=== PATIENT | female | born 1985 | race African-American/Black ===

== ENCOUNTER 2021-07-10 06:21 | Emergency (ER) | payer SELFPAY ==
[2021-07-10] MEDS ORDERED: Dexamethasone 10 MG/ML VIAL ONE (07:29)
[2021-07-10] MEDS ORDERED: Ketorolac Tromethamine 30 MG/ML VIAL ONE (07:29)
== END 2021-07-10 07:35 | disposition home or self-care (01) ==
LOC: CSHERS 06:21
DX: M54.16 Radiculopathy, lumbar region (principal); F17.200 Nicotine dependence, unspecified, uncomplicated
CPT/HCPCS: 96372; 99283; J1100; J1885

== ENCOUNTER 2023-01-19 15:47 | Emergency (ER) | payer SELFPAY ==
[2023-01-19] MEDS ORDERED: Ketorolac Tromethamine 30 MG/ML VIAL ONE (17:37)
== END 2023-01-19 19:25 | disposition home or self-care (01) ==
LOC: CSHERS 15:47
DX: M54.31 Sciatica, right side (principal); I10 Essential (primary) hypertension; F17.200 Nicotine dependence, unspecified, uncomplicated
CPT/HCPCS: 96372; 99283; J1885